=== PATIENT | female | born 1980 | race Caucasian/White ===

== ENCOUNTER → 2017-02-16 | Outpatient (CLI) | payer OTHER ==
[~2017-02-16] MED LIST: Motrin PO; Natalcare Rx,Pramile PO; PERCOCET 5/31 TABLET PO; Percocet 5/325,Endoc PO; TOPAMAX25 MG PO
== END | disposition home or self-care (01) ==
LOC: RAD 10:49
DX: M79.604 Pain in right leg (principal); M77.31 Calcaneal spur, right foot
CPT/HCPCS: 73590; 73630; 73650